=== PATIENT | male | born 1975 | race American Indian/Alaskan Native ===

== ENCOUNTER 2016-11-14 03:35 | Emergency (ER) | payer SELFPAY ==
--- NOTE | 2016-11-14 09:00 | Emergency Department Report ---
ED Rash HPI - HPI Chief Complaint: Skin Rash Stated Complaint: RASH Time Seen by Provider: 11/14/16 08:49 Duration: recurrent x 5 yrs Location: Back, Upper Extremities, Lower Extremities Suspected Cause: Unknown Rash Symptoms: Yes Itching, No Facial Swelling, No Tongue/Oral Swelling, No Breathing Difficulties, No Choking Sensation, No Wheezing/Dyspnea, No Peeling, No Blistering, No Fever, No Lightheaded, No Malaise, No Myalgias Severity: moderate ED Review of Systems ROS: Stated complaint: RASH Other details as noted in HPI Constitutional: denies: chills, fever Eyes: denies: eye pain, eye discharge, vision change ENT: denies: ear pain, throat pain Respiratory: denies: cough, shortness of breath, wheezing Cardiovascular: denies: chest pain, palpitations Endocrine: no symptoms reported Gastrointestinal: as per HPI Genitourinary: as per HPI Musculoskeletal: denies: back pain, joint swelling, arthralgia Skin: rash, pruritus Neurological: denies: headache, weakness, paresthesias Psychiatric: denies: anxiety, depression Hematological/Lymphatic: denies: easy bleeding, easy bruising ED Past Medical Hx - Past Medical History Previous Medical History?: Yes Hx Hypertension: Yes - Surgical History Past Surgical History?: No - Social History Smoking Status: Current Every Day Smoker Substance Use Type: Alcohol - Medications Home Medications: Home Medications Medication Instructions Recorded Confirmed Last Taken Type Acetamin/Codeine 120-12Mg/5 ml 5 ml PO TID PRN #1 ml 09/03/14 Unknown Rx [Tylenol/Codeine] Azithromycin [Zithromax Z-SUNI] 250 mg PO DAILY #6 tablet 09/03/14 Unknown Rx Ibuprofen [Motrin] 800 mg PO Q8H PRN #30 tablet 09/03/14 Unknown Rx Permethrin 5% [Acticin 5% CREAM] 1 applicatio TP ONCE #1 tube 09/03/14 Unknown Rx Prednisone [Prednisone 10 mg 10 mg PO .TAPER #1 tab.ds.pk 09/03/14 Unknown Rx (6-Day Pack, 21 Tabs)] Ibuprofen [Motrin] 800 mg PO Q8H PRN #30 tablet 09/13/14 Unknown Rx Ondansetron [Zofran Odt] 4 mg PO Q6H #10 tab.rapdis 09/13/14 Unknown Rx Penicillin Vk [Veetids TAB] 500 mg PO BID #20 tablet 09/13/14 Unknown Rx traMADol [Ultram 50 MG tab] 50 mg PO Q6HR PRN #10 tablet 09/13/14 Unknown Rx Ibuprofen [Motrin] 800 mg PO Q8HR PRN #60 tablet 02/20/15 Unknown Rx Ondansetron [Zofran Odt] 4 mg PO Q4H PRN #14 tab.rapdis 02/20/15 Unknown Rx traMADol [Ultram] 50 mg PO Q6HR PRN #14 tablet 02/20/15 Unknown Rx Hydrochlorothiazide [HCTZ] 25 mg PO QDAY #30 tablet 11/14/16 Unknown Rx Prednisone [predniSONE 10 mg 10 mg PO .TAPER #1 tab.ds.pk 11/14/16 Unknown Rx (6-Day Pack, 21 Tabs)] Triamcinolone Aceton 0.1% (Nf) 1 applic TP BID #1 tube 11/14/16 Unknown Rx [Kenalog (NF)] hydrOXYzine HCL [Atarax] 25 mg PO Q6HR PRN #30 tablet 11/14/16 Unknown Rx Rash Exam - Exam General: Vital signs noted. No distress. Alert and acting appropriately. HEENT: No Periorbital Edema, No Conjuctival Injection, No Chemosis, No Perioral Edema, No Tongue Edema, No Uvular Edema, No Compromised Airway, No Drooling Lungs: Yes Good Air Exchange, No Wheezes, No Ronchi, No Stridor, No Cough, No Labored Respirations, No Retractions, No Use of Accessory Muscles, No Other Abnormal Lung Sounds Heart: Yes Regular, No Murmur Skin: Yes Urticarial Rash, Yes Maculopapular Rash, Yes Erythema, No Morbilliform rash, No Bulla(e), No Excoriations, No Weeping, No Tenderness, No Edema, No Encrustations, No Other Other: Positive: Abdomen Normal, Neurologic Normal, Musculoskeletal Normal ED Course Vital Signs 11/14/16 11/14/16 03:41 05:10 Temperature 97.6 F 98.4 F Pulse Rate 72 81 Respiratory 18 18 Rate Blood Pressure 179/121 152/114 O2 Sat by Pulse 100 99 Oximetry ED Medical Decision Making - Medical Decision Making pt presents for recurrent contact dermatitis rash , pt works as food service worker advises " rash occurs time to time over past 3 yrs, pt denies fever no chills no n/v, rash papular erythema to bilat forearms legs , groin and back there no ulcers no painful lesion no penile discharge no rash to hands or feet, this is like contact dermatitis no concern for syphilis or herpes at this point will treat with triamcinolone, prednisone taper, and atarax for itching pt advised to follow up with dermatology , secondary concern is asymptomatc bp pt denies headache no dizziness no lightheadness no cp no sob no pt previously on hctz, will refill same, pt will follow up with pcp for managment of bp pt vebalized agreement and understanding with treatment plan. Critical care attestation.: If time is entered above; I have spent that time in minutes in the direct care of this critically ill patient, excluding procedure time. ED Disposition Clinical Impression: Contact dermatitis Qualifiers: Contact dermatitis type: allergic Contact dermatitis trigger: unspecified trigger Qualified Code(s): L23.9 - Allergic contact dermatitis, unspecified cause Disposition: TO HOME OR SELFCARE Is pt being admited?: No Does the pt Need Aspirin: No Condition: Good Instructions: Eczema (ED), Contact Dermatitis (ED) Additional Instructions: follow up with dermatology as directed Prescriptions: Hydrochlorothiazide [HCTZ] 25 mg PO QDAY #30 tablet hydrOXYzine HCL [Atarax] 25 mg PO Q6HR PRN #30 tablet PRN Reason: Itching Prednisone [predniSONE 10 mg (6-Day Pack, 21 Tabs)] 10 mg PO .TAPER #1 tab.ds.pk Triamcinolone Aceton 0.1% (Nf) [Kenalog (NF)] 1 applic TP BID #1 tube Referrals: PRIMARY CARE, [Primary Care Provider] - 3-5 Days Forms: Work/School Release Form(ED) Time of Disposition: 09:03
[2016-11-14 09:12] VITALS: BP 164/106
== END 2016-11-14 09:11 | disposition home or self-care (01) ==
LOC: ED 03:35
DX: R21 Rash and other nonspecific skin eruption (principal); Z53.21 Procedure and treatment not carried out due to patient leaving prior to being seen by health care provider
CPT/HCPCS: 99282

== ENCOUNTER 2017-04-02 10:59 | Emergency (ER) | payer MEDICAID, OTHER ==
[2017-04-02 11:08] VITALS: BP 138/95
--- NOTE | 2017-04-02 12:52 | Emergency Department Report ---
ED General Adult HPI - General Chief complaint: Skin/Abscess/Foreign Body Stated complaint: GROIN ABSCESS Time Seen by Provider: 04/02/17 11:46 Source: patient Mode of arrival: Ambulatory Limitations: No Limitations - History of Present Illness Initial comments: Pt is a 41-year-old male past medical history of dermatitis who presents with scrotal itching and rash. Patient states that the symptoms that he is experiencing has been going on for last 4 months. And states that his itching is severe scratching makes it better nothing makes it worse. He denies being any pain and states that he sexually active. Patient denies having any penile discharge. Since denies of any nausea or vomiting. Patient has no significant family medical history. - Related Data Previous Rx's Medication Instructions Recorded Last Taken Type Acetamin/Codeine 120-12Mg/5 ml 5 ml PO TID PRN #1 ml 09/03/14 Unknown Rx [Tylenol/Codeine] Azithromycin [Zithromax Z-SUNI] 250 mg PO DAILY #6 tablet 09/03/14 Unknown Rx Ibuprofen [Motrin] 800 mg PO Q8H PRN #30 tablet 09/03/14 Unknown Rx Permethrin 5% [Acticin 5% CREAM] 1 applicatio TP ONCE #1 tube 09/03/14 Unknown Rx Prednisone [Prednisone 10 mg 10 mg PO .TAPER #1 tab.ds.pk 09/03/14 Unknown Rx (6-Day Pack, 21 Tabs)] Ibuprofen [Motrin] 800 mg PO Q8H PRN #30 tablet 09/13/14 Unknown Rx Ondansetron [Zofran Odt] 4 mg PO Q6H #10 tab.rapdis 09/13/14 Unknown Rx Penicillin Vk [Veetids TAB] 500 mg PO BID #20 tablet 09/13/14 Unknown Rx traMADol [Ultram 50 MG tab] 50 mg PO Q6HR PRN #10 tablet 09/13/14 Unknown Rx Ibuprofen [Motrin] 800 mg PO Q8HR PRN #60 tablet 02/20/15 Unknown Rx Ondansetron [Zofran Odt] 4 mg PO Q4H PRN #14 tab.rapdis 02/20/15 Unknown Rx traMADol [Ultram] 50 mg PO Q6HR PRN #14 tablet 02/20/15 Unknown Rx Hydrochlorothiazide [HCTZ] 25 mg PO QDAY #30 tablet 11/14/16 Unknown Rx Prednisone [predniSONE 10 mg 10 mg PO .TAPER #1 tab.ds.pk 11/14/16 Unknown Rx (6-Day Pack, 21 Tabs)] Triamcinolone Aceton 0.1% (Nf) 1 applic TP BID #1 tube 11/14/16 Unknown Rx [Kenalog (NF)] hydrOXYzine HCL [Atarax] 25 mg PO Q6HR PRN #30 tablet 11/14/16 Unknown Rx Diphenhydramine HCl/Zinc Acet 28.3 gm TP Q6HR #1 cream..g. 04/02/17 Unknown Rx [Benadryl Itch Stopping Crm] Allergies Allergy/AdvReac Type Severity Reaction Status Date / Time No Known Allergies Allergy Verified 04/02/17 11:03 ED Review of Systems ROS: Stated complaint: GROIN ABSCESS Other details as noted in HPI Constitutional: denies: chills, fever Eyes: denies: eye pain, eye discharge, vision change ENT: denies: ear pain, throat pain Respiratory: denies: cough, shortness of breath, wheezing Cardiovascular: denies: chest pain, palpitations Endocrine: no symptoms reported Gastrointestinal: denies: abdominal pain, nausea, diarrhea Genitourinary: other (gential itching ). denies: urgency, dysuria Musculoskeletal: denies: back pain, joint swelling, arthralgia Skin: rash. denies: lesions Neurological: denies: headache, weakness, paresthesias Psychiatric: denies: anxiety, depression Hematological/Lymphatic: denies: easy bleeding, easy bruising ED Past Medical Hx - Past Medical History Previous Medical History?: Yes Hx Hypertension: Yes - Surgical History Past Surgical History?: No - Social History Smoking Status: Never Smoker Substance Use Type: Marijuana - Medications Home Medications: Home Medications Medication Instructions Recorded Confirmed Last Taken Type Acetamin/Codeine 120-12Mg/5 ml 5 ml PO TID PRN #1 ml 09/03/14 Unknown Rx [Tylenol/Codeine] Azithromycin [Zithromax Z-SUNI] 250 mg PO DAILY #6 tablet 09/03/14 Unknown Rx Ibuprofen [Motrin] 800 mg PO Q8H PRN #30 tablet 09/03/14 Unknown Rx Permethrin 5% [Acticin 5% CREAM] 1 applicatio TP ONCE #1 tube 09/03/14 Unknown Rx Prednisone [Prednisone 10 mg 10 mg PO .TAPER #1 tab.ds.pk 09/03/14 Unknown Rx (6-Day Pack, 21 Tabs)] Ibuprofen [Motrin] 800 mg PO Q8H PRN #30 tablet 09/13/14 Unknown Rx Ondansetron [Zofran Odt] 4 mg PO Q6H #10 tab.rapdis 09/13/14 Unknown Rx Penicillin Vk [Veetids TAB] 500 mg PO BID #20 tablet 09/13/14 Unknown Rx traMADol [Ultram 50 MG tab] 50 mg PO Q6HR PRN #10 tablet 09/13/14 Unknown Rx Ibuprofen [Motrin] 800 mg PO Q8HR PRN #60 tablet 02/20/15 Unknown Rx Ondansetron [Zofran Odt] 4 mg PO Q4H PRN #14 tab.rapdis 02/20/15 Unknown Rx traMADol [Ultram] 50 mg PO Q6HR PRN #14 tablet 02/20/15 Unknown Rx Hydrochlorothiazide [HCTZ] 25 mg PO QDAY #30 tablet 11/14/16 Unknown Rx Prednisone [predniSONE 10 mg 10 mg PO .TAPER #1 tab.ds.pk 11/14/16 Unknown Rx (6-Day Pack, 21 Tabs)] Triamcinolone Aceton 0.1% (Nf) 1 applic TP BID #1 tube 11/14/16 Unknown Rx [Kenalog (NF)] hydrOXYzine HCL [Atarax] 25 mg PO Q6HR PRN #30 tablet 11/14/16 Unknown Rx Diphenhydramine HCl/Zinc Acet 28.3 gm TP Q6HR #1 cream..g. 04/02/17 Unknown Rx [Benadryl Itch Stopping Crm] ED Physical Exam - General Limitations: No Limitations General appearance: alert, in no apparent distress - Head Head exam: Present: atraumatic, normocephalic - Eye Eye exam: Present: normal appearance - ENT ENT exam: Present: mucous membranes moist - Neck Neck exam: Present: normal inspection - Respiratory Respiratory exam: Present: normal lung sounds bilaterally. Absent: respiratory distress - Cardiovascular Cardiovascular Exam: Present: regular rate, normal rhythm. Absent: systolic murmur, diastolic murmur, rubs, gallop - GI/Abdominal GI/Abdominal exam: Present: soft, normal bowel sounds - Rectal Rectal exam: Present: deferred - exam: Present: other (no tenderness to the scrotum itchy papule 1cm x2 cm no ulcer no inguinal lymphadenopathy no change in rash in last 4 months per patient ) - Extremities Exam Extremities exam: Present: normal inspection, other (left arm eczema rash chronic ) - Back Exam Back exam: Present: normal inspection - Neurological Exam Neurological exam: Present: alert, oriented X3 - Psychiatric Psychiatric exam: Present: normal affect, normal mood - Skin Skin exam: Present: warm, dry, intact, normal color. Absent: rash ED Course Vital Signs 04/02/17 11:03 Temperature 98.4 F Pulse Rate 77 Respiratory 18 Rate Blood Pressure 138/95 O2 Sat by Pulse 98 Oximetry ED Medical Decision Making - Medical Decision Making Chief Medical diagnosis: emily rash 2/2 poor scrotal itching Ddx: Contact dermatitis, chronic folliculitis I will treat patient with oral fluconazole I will send the patient home with referral for press breaker. This rash is chronic and requires no antibiotics I will treat him empirically with oral fluconazole I will also send patient with Benadryl cream for his rash on his arm and have him follow-up with the press breaker insists is chronic and unchanging. Discussed plan with patient he agrees with plan additional verbal discharge structures. Critical care attestation.: If time is entered above; I have spent that time in minutes in the direct care of this critically ill patient, excluding procedure time. ED Disposition Clinical Impression: Emily infection of genital region Contact dermatitis Qualifiers: Contact dermatitis type: unspecified Contact dermatitis trigger: unspecified trigger Qualified Code(s): L25.9 - Unspecified contact dermatitis, unspecified cause Disposition: DC- TO HOME OR SELFCARE Is pt being admited?: No Does the pt Need Aspirin: No Condition: Stable Instructions: Urticaria (ED), Acute Rash (ED) Prescriptions: Diphenhydramine HCl/Zinc Acet [Benadryl Itch Stopping Crm] 28.3 gm TP Q6HR #1 cream..g. Referrals: TANNER LOPEZ MD [Staff Physician] - 3-5 Days HERNAN BESS MD [Staff Physician] - 3-5 Days Forms: Work/School Release Form(ED)
[2017-04-02] MEDS ORDERED: ATARAX PO ONE (13:00)
[2017-04-02] MEDS ORDERED: DIFLUCAN PO ONE (13:12)
== END 2017-04-02 12:56 | disposition home or self-care (01) ==
LOC: ED 10:59
DX: L25.9 Unspecified contact dermatitis, unspecified cause (principal); B37.49 Other urogenital candidiasis; F12.10 Cannabis abuse, uncomplicated
CPT/HCPCS: 99282